=== PATIENT | female | born 1980 | race Caucasian/White ===

== ENCOUNTER 2016-09-23 07:18 | Inpatient (IN) | payer BC ==
[2016-09-23] MEDS ORDERED: TERBUTALINE SULFATE 1 MG/ML VIAL IV PRN (07:52)
[2016-09-23] MEDS ORDERED: LR 1,000 ML IV PRN (07:52)
[2016-09-23] MEDS ORDERED: OXYTOCIN/RINGERS LACTATE 1,000 ML IV PRN (07:52)
--- NOTE | 2016-09-23 08:25 | GHP ---
DATE OF ADMISSION: 09/23/2016 CHIEF COMPLAINT: Contractions. HISTORY OF PRESENT ILLNESS: The patient is a 36-year-old, G6, P3-0-2- 3, at 40- 0/7 weeks' gestation who presents to Labor and Delivery with complaints of contractions every 5-10 minutes. She has also had some bloody show and no loss of fluid. She is dated by a last menstrual period and a 9-week ultrasound. PAST MEDICAL HISTORY: Significant for hypothyroidism, Graves disease, status post radiation therapy. She also has seasonal allergies. PAST SURGICAL HISTORY: D and C, right hand surgery. FAMILY HISTORY: Noncontributory. OBSTETRICAL HISTORY: Three previous NSVDs and 1 molar and 1 miscarriage. GYNECOLOGIC HISTORY: Noncontributory. ALLERGIES: She has no known drug allergies. CURRENT MEDICATIONS: Include vitamin, and Synthroid 88 mcg daily. REVIEW OF SYSTEMS: Positive for painful contractions and vaginal bleeding. Negative for loss of fluid. PHYSICAL EXAMINATION: VITAL SIGNS: Blood pressure is 122/71, pulse 73, respiratory rate 16, temperature is 36.6. GENERAL: She is uncomfortable with contractions. ABDOMEN: Gravid and nontender. Estimated weight is 7 pounds. Cervical exam is 6 cm, 60% effaced, -2 station. AROM is clear. heart tones were in the 110s with moderate variability and positive accelerations. She is lena about every 5 minutes. LABORATORY DATA: Significant for AB positive, antibody screen negative. Rubella immune. RPR nonreactive. Hepatitis B surface antigen negative. HIV negative. Gonorrhea and chlamydia negative. One-hour Glucola was elevated at 166. Her 3-hour Glucola was normal. Her GBS was negative on 08/30. ASSESSMENT/PLAN: The patient is a 36-year-old, G6, P3-0-2-3, female who is at 40 weeks' gestation, in early labor. well-being is reassuring. GBS is negative. Anticipate . /[id number]/MODL MTDD
[2016-09-23 08:43] LABS: % IMMATURE GRANULYOCYTES 0.5 % (0.0-1.1); ABSOLUTE IMMATURE GRANULOCYTES 0.05 10^3/uL (0.00-0.10); ADD DIFF? NO; ADD MORPH? NO; ADD SCAN? NO; ATYPICAL LYMPHOCYTE FLAG 10 (0-99); FRAGMENT RBC FLAG 0 (0-99); HEMATOCRIT 36.5 % (38.0-47.0); HEMOGLOBIN 11.9 g/dL (12.6-16.3); LEFT SHIFT FLG 0 (0-99); LIPEMIA HEMOLYSIS FLAG 80 (0-99); MEAN CELL HEMOGLOBIN 26.2 pg (27.9-34.1); MEAN CELL HEMOGLOBIN CONCENTR. 32.6 g/dL (32.4-36.7); MEAN CELL VOLUME 80.4 fL (81.5-99.8); MEAN PLATELET VOLUME 9.4 fL (8.7-11.7); PLATELET CLUMPS FLAG 10 (0-99); PLATELET COUNT 216 10^3/uL (150-400); RED BLOOD CELL COUNT 4.54 10^6/uL (4.18-5.33); RED CELL DISTRIBUTION WIDTH 14.8 % (11.5-15.2)
[2016-09-23] MEDS ORDERED: TERBUTALINE SULFATE 1 MG/ML VIAL ONE (08:46)
[2016-09-23] MEDS ORDERED: LIDOCAINE 1% 30 ML SDV ONE (08:46)
[2016-09-23] MEDS ORDERED: AMMONIA AROMATIC 1 EACH AMP IH ONE (08:46)
[2016-09-23] MEDS ORDERED: MISOPROSTOL 200 MCG TAB ONE (08:47)
[2016-09-23] MEDS ORDERED: LR 500 ML IV PRN (10:10)
--- NOTE | 2016-09-23 10:10 | OBPROG ---
OBG Progress Note Assessment/Plan: Assessment: 36 yo @ 40 0/7, in labor, slow in progression, patient desires augmentation. Plan: 09/23/16 10:08 FWB reassuring. GBS neg. Begin pitocin for augmentation. Subjective: 36 yo @ 40 0/7, in labor, slow in progression, patient desires augmentation. Objective: 09/23/16 08:00 Patient ABO/Rh AB POSITIVE 09/23/16 08:00 VSS - SVE Dilation (cm): 7 Effacement (%): 75 Station: -2 Current Contraction Pattern: Irregular FHR (bpm): 130 FHR Pattern Variability: Moderate FHR Category: 2 Membranes: AROM Amniotic Fluid Color: Clear ICD10 Worksheet Patient Problems: Problems Problem Status Onset Labor established Acute Normal labor Acute Spontaneous vaginal delivery Acute
[2016-09-23] MEDS ORDERED: OXYTOCIN/RINGERS LACTATE 500 ML IV SCH (10:30)
[2016-09-23] MEDS ORDERED: DOCUSATE SODIUM 100 MG CAP PO PRN (12:42)
[2016-09-23] MEDS ORDERED: SIMETHICONE 80 MG TAB CHEW PO PRN (12:42)
[2016-09-23] MEDS ORDERED: HYDROCORTISONE 0.5% CREAM TP PRN (12:42)
[2016-09-23] MEDS ORDERED: HYDROCODONE/APAP 5/325 TAB PO PRN (12:42)
--- NOTE | 2016-09-23 12:44 | OBPROC ---
- Labor and Delivery Onset of Contractions Date: 09/22/16 Onset of Contractions Time: 15:00 Onset of Contractions Type: Augmented Rupture of Membranes Date: 09/23/16 Rupture of Membranes Time: 07:45 Rupture of Membranes Type: Artificial Amniotic Fluid Color: Clear Dilation Complete Time: 12:15 Delivery Type: Spontaneous Placenta Delivery Date: 09/23/16 EBL: 200 ml Complications: None - Medications Labor Augmentation/Induction Meds Used: Pitocin Labor Augmentation/Induction Indication: Other (Specify) (protraction of labor) - Info Infant A Delivery Date: 09/23/16 Delivery Time: 12:26 Sex of : Female Score (1 Min): 8 Score (5 Min): 9
[2016-09-23] MEDS: IBUPROFEN 600 MG TAB PO PRN ×2 (13:08→18:40)
[2016-09-23 21:33] VITALS: O2SAT 95
[2016-09-24] MEDS: IBUPROFEN 600 MG TAB PO PRN ×3 (01:05→13:10)
[2016-09-24 09:14] VITALS: BP 110/70; PULSE 72; RESP 16; TEMP 98
--- NOTE | 2016-09-24 10:02 | SOAPPROG ---
SOAP Progress Note Assessment/Plan: Assessment: 36 yo s/p , ppd 1, doing well, ready discharge. Plan: Rh +, rubella immune, routine postop care, home today. 09/24/16 10:00 Subjective: 36 yo s/p , ppd 1, doing well, ready discharge. Objective: Vital Signs Temp Pulse Resp BP Pulse Ox 36.7 C 72 16 110/70 95 09/24/16 09:13 09/24/16 09:13 09/24/16 09:13 09/24/16 09:13 09/24/16 09:13 Laboratory Results 09/23/16 08:00 09/23/16 09/24/16 09/25/16 05:59 05:59 05:59 Output Total 250 Balance -250 Physical Exam - Physical Exam General Appearance: no apparent distress Respiratory: lungs clear Cardiac/Chest: regular rate, rhythm Abdomen: non-tender Skin: warm/dry Extremities: non-tender Neuro/Psych: oriented x 3 ICD10 Worksheet Patient Problems: Problems Problem Status Onset Labor established Acute Normal labor Acute Spontaneous vaginal delivery Acute
--- NOTE | 2016-09-25 09:19 | OBGCSDC ---
General Delivery Information - General Info : 6 Para: 4 Delivery Date: 09/23/16 Delivery Physician/CNM: Hyacinth Zelaya Admission Date: 09/22/16 Labs: Patient ABO/Rh AB POSITIVE 09/23/16 08:00 Hct 36.5 % (38.0-47.0) L 09/23/16 08:00 - Info Infant A Sex of : Female Score (1 Min): 8 Score (5 Min): 9 Vaginal - Diagnosis IUP (Weeks): 39 Labor: Augmented Rupture of Membranes Type: Artificial Amniotic Fluid Color: Clear Complications: None - Operations/Procedures Delivery Type: Spontaneous - Delivery EBL: 200 ml Discharge Information - Discharge Information Discharge Medications: Ibuprofen, Percocet, Vitamins Condition: Good Instruction/Follow Up: Six Weeks Discharge Physician/CNM: Peyotn Estes Discharge Date: 09/25/16 Dictated: No
== END 2016-09-24 14:45 | disposition home or self-care (01) | DRG 775 ==
LOC: FLD 07:18 → FOB 15:16
PROVIDERS: ADMIT Obstetrics & Gynecology; ATTEND Obstetrics & Gynecology
PROC: 10907ZC Drainage of Amniotic Fluid, Therapeutic from Products of Conception, Via Natural or Artificial Opening (ICD-10-PCS; principal; 2016-09-23)
PROC: 10E0XZZ Delivery of Products of Conception, External Approach (ICD-10-PCS; principal; 2016-09-23)
DX: O99.283 Endocrine, nutritional and metabolic diseases complicating pregnancy, third trimester (principal); E03.9 Hypothyroidism, unspecified; Z3A.40 40 weeks gestation of pregnancy; Z37.0 Single live birth
CPT/HCPCS: J2590; J3105